=== PATIENT | female | born 2000 | race Caucasian/White ===

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

== ENCOUNTER 2022-04-17 01:27 | Emergency (ER) | payer MEDICAID, SELFPAY ==
[2022-04-17 01:29] VITALS: BP 127/87; PULSE 81; RESP 14; TEMP 36.7; O2SAT 100; BMI 17.9
[2022-04-17 01:45] LABS: Appearance,Urine CLEAR (Clear); Bilirubin,Urine Negative (Negative); Blood, Urine 1+ (Negative); Color,Urine YELLOW (Yellow); Glucose,Urine (UA) Negative (Negative); Ketones,Urine TRACE (Negative); Leukocyte Esterase,Urine Negative (Negative); Microscopic, Urine URINE MICROSCOPIC (MICROSCOPIC); Nitrate,Urine Negative (Negative); PH,Urine 5.5 (5.0-8.5); Protein,Urine TRACE (Negative); Specific Gravity, Urine >= 1.030 (1.005-1.030); Urobilinogen,Urine 0.2 EU/dl (0.2)
[2022-04-17 01:47] LABS: Urine Pregnancy, HCG Qual. Negative (Negative)
[2022-04-17 02:00] VITALS: BP 113/75; PULSE 89; O2SAT 100
--- NOTE | 2022-04-17 02:12 | CT_ITS ---
PROCEDURE INFORMATION: Exam: CT Abdomen And Pelvis With Contrast Exam date and time: 04/17/2022 2:22 AM Age: 21 years old Clinical indication: Abdominal pain TECHNIQUE: Imaging protocol: Computed tomography of the abdomen and pelvis with contrast. Radiation optimization: All CT scans at this facility use at least one of these dose optimization techniques: automated exposure control; mA and/or kV adjustment per patient size (includes targeted exams where dose is matched to clinical indication); or iterative reconstruction. Contrast material: ISOVUE; Contrast volume: 75 ml; Contrast route: IV; COMPARISON: No relevant prior studies available. FINDINGS: Lungs: The lung bases are clear. No pleural effusion. Liver: Unremarkable. No mass. Gallbladder and bile ducts: Unremarkable. No calcified stones. No ductal dilation. Pancreas: Unremarkable. Spleen: Unremarkable. Adrenal glands: Unremarkable. Kidneys and ureters: There is mild right hydronephrosis with delayed nephrogram. There is a 3 mm obstructing stone at the right ureterovesical junction. There is an additional adjacent 2 mm calcification which may also be within the ureter (versus calcified pelvic phlebolith). Stomach and bowel: Unremarkable. No obstruction. No mucosal thickening. Moderate colonic stool. Appendix: The appendix is not identified with certainty on the study. No evidence of appendicitis. Intraperitoneal space: No free air. No significant fluid collection. Retroperitoneal space: No bulky lymphadenopathy. Vasculature: Unremarkable. No abdominal aortic aneurysm. Lymph nodes: Unremarkable. No enlarged lymph nodes. Urinary bladder: Decompressed. Reproductive: Unremarkable as visualized. Bones/joints: Unremarkable. No acute osseous abnormality. Soft tissues: Unremarkable. IMPRESSION: Mild right hydronephrosis due to 3 mm obstructing stone at the right ureterovesical junction. There is an adjacent 2 mm calcification in this vicinity which may represent an additional stone.
--- NOTE | 2022-04-17 02:20 | PC.NURSE ---
Pt gone to RAD
[2022-04-17 02:30] LABS: Basophils # 0.3 K/mm3 (0-0.2); Basophils % 1.9 % (0.1-2.0); Eosinophils % 0.3 % (0.1-12.0); Hematocrit 40.4 % (37.0-47.0); Hemoglobin 13.1 g/dL (12.2-16.2); Lymphocytes % 15.4 % (10-50); Mean Corpuscular HGB Conc 32.5 g/dL (31.8-35.4); Mean Corpuscular Hemoglobin 29.7 pg (27.0-31.2); Mean Corpuscular Volume 91.3 fl (81-99); Mean Platelet Volume 9.2 fl (7.4-10.4); Monocytes # 0.5 K/mm3 (0.1-1.0); Monocytes % 3.8 % (1.7-9.3); Neutrophils # 10.3 K/mm3 (1.8-7.8); Neutrophils % 78.6 % (37.0-80.0); Platelet Count 304 K/mm3 (142-424); Red Blood Count 4.42 M/mm3 (4.20-5.40); Red Cell Distribution Width 12.9 % (11.5-17.5); White Blood Count 13.1 K/mm3 (4.5-13.0)
--- NOTE | 2022-04-17 02:31 | PC.NURSE ---
Pt back from RAD
[2022-04-17 02:40] LABS: Chloride 106 mmol/L (98-107); Potassium 3.6 mmoL/L (3.5-5.1); Sodium 138 mmol/L (136-145)
[2022-04-17 02:43] LABS: Alanine Aminotransferase 18 U/L (12-78); Albumin Level 4.9 g/dl (3.5-5.0); Albumin/Globulin Ratio 1.7 (1.1-1.8); Alkaline Phosphatase 69 U/L (38-126); Amylase 83 U/L (30-110); Anion Gap 11.6 mEq/L (5-15); Aspartate Amino Transferase 30 U/L (14-36); Bilirubin,Total 0.2 mg/dl (0.2-1.3); Blood Urea Nitrogen 14 mg/dl (7-17); Carbon Dioxide 24 mmol/L (22.0-30.0); Creatinine Clearance Estimated 103 mL/min (50-200); Estimated Glomerular Filt Rate 129 ml/min (>60); GFR (African American) 156 ML/MIN (>60); Globulin 2.9 g/dL (1.3-3.2); Total Protein,Serum 7.8 g/dl (6.3-8.2)
[2022-04-17 02:44] LABS: Calcium 9.6 mg/dl (8.4-10.2); Glucose 127 mg/dl (74-100); Lipase 76 U/L (23-300)
--- NOTE | 2022-04-17 02:56 | PC.NURSE ---
Pt resting in bed. No new needs at this time.
[2022-04-17 03:00] VITALS: BP 115/77; PULSE 100; O2SAT 100
[2022-04-17 03:02] LABS: Procalcitonin 0.033 ng/mL (0.0-2.0)
[2022-04-17 03:12] LABS: C-Reactive Protein < 0.3 mg/L (0-4); Erythrocyte Sedimentation Rate 11 mm/hr (0-20)
--- NOTE | 2022-04-17 04:22 | HMH.EDNVD ---
ED Disposition Clinical Impression: Renal colic on right side Disposition: Home, Self-Care Condition on Discharge: Good Instructions: DI for Kidney Stones Additional Instructions: fluids and call pcp and urology this am Prescriptions: Tamsulosin HCl [Flomax 0.4mg capsule] 0.4 mg PO HS #10 cap Transmission Status: Pending to [id number] Referrals: Moose Ruiz MD [Primary Care Provider] - Catrachito Lockhart MD [Staff Physician] - - Critical Care Critical Care Time: No Attestation: On 04/17/22, the high probability of a clinically significant, sudden or life threatening deterioration of the following system(s) required my full and direct attention, intervention and personal management. The time I documented below is in addition to time spent performing reported procedures but includes the following listed in this critical care notation. Medical Decision Making - Medical Records Medical records reviewed: Yes: I reviewed the patient's medical records. - Hong Inquiry Pt receiving controlled substance: No Vital Signs: 04/17/22 01:29 04/17/22 02:00 04/17/22 03:00 Temperature 98.1 F Temperature Source Oral Pulse Rate 89 100 H Pulse Rate [Right Radial] 81 Respiratory Rate 14 Blood Pressure 113/75 115/77 Blood Pressure [Right Arm] 127/87 Blood Pressure Mean 87 86 Blood Pressure Mean [Right Arm] 100 Blood Pressure Source [Right Arm] Automatic Cuff Blood Pressure Position [Right Arm] Sitting 02 Sat by Pulse Oximetry 100 100 100 Oxygen Delivery Method Room Air - Lab Data Lab results reviewed: Yes: I reviewed the patient's lab results. Lab Results 04/17/22 01:40: Urine Color Yellow, Urine Appearance Clear, Urine pH 5.5, Ur Specific [place] >= 1.030, Urine Protein Trace, Urine Glucose (UA) Negative, Urine Ketones Trace, Urine Blood 1+, Urine Nitrate Negative, Urine Bilirubin Negative, Urine Urobilinogen 0.2, Ur Leukocyte Esterase Negative, Urine RBC 5-10, Urine WBC None, Ur Squamous Epith Cells 3-5, Urine Bacteria None 04/17/22 01:40: Urine HCG, Qual Negative 04/17/22 02:00: WBC 13.1 H, RBC 4.42, Hgb 13.1, Hct 40.4, MCV 91.3, MCH 29.7, MCHC 32.5, RDW 12.9, Plt Count 304, MPV 9.2, Neut % (Auto) 78.6, Lymph % (Auto) 15.4, [place] % (Auto) 3.8, Eos % (Auto) 0.3, Baso % (Auto) 1.9, Neut # (Auto) 10.3 H, Lymph # (Auto) 2.0, [place] # (Auto) 0.5, Eos # (Auto) 0.0, Baso # (Auto) 0.3 H 04/17/22 02:00: Sodium 138, Potassium 3.6, Chloride 106, Carbon Dioxide 24, Anion Gap 11.6, BUN 14, Creatinine 0.60, Estimated Creat Clear 103, Estimated GFR 129, Est GFR ( Amer) 156, Glucose 127 H, Calcium 9.6, Total Bilirubin 0.2, AST 30, ALT 18, Alkaline Phosphatase 69, C-Reactive Protein < 0.3, Total Protein 7.8, Albumin 4.9, Globulin 2.9, Albumin/Globulin Ratio 1.7 04/17/22 02:00: ESR 11 04/17/22 02:00: Amylase 83, Procalcitonin 0.033 04/17/22 02:00: Lipase 76 Result diagrams: 04/17/22 02:00 04/17/22 02:00 Orders (Tests/Meds): ED MEDICATIONS Generic Name Dose Route Start Last Admin Trade Name Freq PRN Reason Stop Dose Admin Sodium Chloride 1,000 mls @ 999 mls/hr 04/17/22 02:00 04/17/22 02:05 Sod Chlor 0.9% 1000ml Bag IV 04/17/22 03:00 999 mls/hr .Q1H1M YARELI Administration Sodium Chloride 1,000 mls @ 999 mls/hr 04/17/22 03:15 Sod Chlor 0.9% 1000ml Bag IV 04/17/22 04:15 .Q1H1M YARELI Discontinued Medications Generic Name Dose Route Start Last Admin Trade Name Freq PRN Reason Stop Dose Admin Iopamidol 75 ml 04/17/22 02:34 04/17/22 02:35 Iopamidol-370 (76%);100ml Bottle IV 04/17/22 02:35 75 ml ONCE ONE Administration Ketorolac Tromethamine 30 mg 04/17/22 02:08 04/17/22 02:10 Ketorolac 30mg/Ml Vial IV 04/17/22 02:09 30 mg ONCE ONE Administration Ondansetron HCl 4 mg 04/17/22 01:54 04/17/22 02:06 Ondansetron 4mg/2ml Vial IV 04/17/22 01:55 4 mg ONCE ONE Administration Sodium Chloride 10 ml 04/17/22 02:34 04/17/22 02:35
[2022-04-17 04:42] VITALS: BP 118/74; PULSE 66; RESP 16; TEMP 36.7; O2SAT 100
== END 2022-04-17 04:52 | disposition home or self-care (01) ==
PROVIDERS: Emergency Provider Emergency Medicine; PCP Family Medicine
DX: N23 Unspecified renal colic (principal); R11.2 Nausea with vomiting, unspecified; M54.50 Low back pain, unspecified
CPT/HCPCS: 74177; 80053; 81001; 81025; 82150; 83690; 84145; 85025; 85651; 86140; 96361; 96374; 96375; 99285; J2405; Q9967

== ENCOUNTER 2025-09-04 11:43 | Emergency (ER) | payer OTHER, SELFPAY ==
[2025-09-04] VITALS (8 sets, daily range): BP systolic 103–124; BP diastolic 68–93; PULSE 79–106; RESP 12–19; TEMP 36.9–37.1; O2SAT 98–99; BMI 17.2
--- NOTE | 2025-09-04 11:46 | ECG_ITS ---
APPROVED REPORT Exam: Resting ECG HR:101 bpm ECG Measurements Heart Rate 101 AXES IL 139 P 61 QRSd 102 QRS 81 QT 359 T 9 QTc 417 Conclusion SINUS TACHYCARDIA INCOMPLETE RIGHT BUNDLE BRANCH BLOCK [90+ ms QRS DURATION, TERMINAL R IN V1/V2, 40+ ms S IN I/aVL/V4/V5/V6] NONSPECIFIC T-WAVE ABNORMALITY ABNORMAL RHYTHM ECG UNCONFIRMED REPORT Electronically signed by : Catrachito Virk, 09/04/2025 15:48:28
--- NOTE | 2025-09-04 11:46 | HMH.EDGENADL ---
Discharge Plan Disposition Patient Disposition: Home, Self-Care Condition: Fair Prescriptions Prescriptions: No Action No Known Home Medications Referrals Follow up/Referrals: eMlia Oconnor APRN [Primary Care Provider, Family Practice] - See instructions Activity Restrictions/Add. Instructions Additional Instructions/Restrictions: Stay well-hydrated. Tylenol and Motrin as needed for pain. Return if change in characteristic of pain or shortness of breath or worsening pain despite medication at home. Please follow up with your primary care provider in 2-3 days. Please return to ED if your symptoms worsen, change in location, change in severity, new symptoms develop or if you become concerned for your health. Clinical Impressions Clinical Impression: Chest pain, Hypoglycemia Print Language Print Language: Greek Discharge ED Provider: Catrachito Virk General Adult HPI General Chief complaint: Chest Pain Stated complaint: Chest Pain Time Seen by Provider: 09/04/25 11:46 History of Present Illness HPI narrative: Patient is a 25 female with no significant past medical history presents today for chest pain. She reports a viral illness last week with congestion runny nose vomiting and diarrhea that all resolved. She reports that over the last 2 days, she has developed anterior chest pain that occasionally radiates through to her back. 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 She reports that when she is walking and exerting herself the chest pain gets worse and can resolve with rest. She reports it is positional, but reports that it gets worse with leaning forward, but this is only slightly. Denies any lower extremity edema or history of blood clots. No OCPs or estrogen supplementation. No recent travel. No trauma. No numbness weakness tingling or continued cough congestion runny nose or shortness of breath. Related Data Home Medications ?Medication ?Instructions ?Recorded ?Confirmed No Known Home Medications 09/04/25 09/04/25 Allergies Allergy/AdvReac Type Severity Reaction Status Date / Time No Known Allergies Allergy Verified 09/04/25 11:51 [facility] Disclaimer: The information contained in this section may have been updated after the patient was seen, as this information can be updated by other users. Medical History (Updated 09/04/25 @ 13:57 by Catrachito Virk MD) Palpitation Surgical History History of tonsillectomy Social History Smoking Status: Current some day smoker alcohol intake: never substance use type: denies use current occupational status: unemployed Travel in the last 8 weeks?: None household members: friend(s) housing: house Have you lived/traveled outside [place] in past 30 days?: No Contact w/someone who lives/traveled outside US past 30 days?: No Exposure to someone with infectious disease in past 14 days?: No Do you have a fever (greater than 100.4 F or 38 C)?: No Have you tested positive for COVID-19?: No Exposed to someone with COVID-19 in past 14 days?: No Do you have a sore throat?: No Do you have a cough?: No Do you have any weakness?: No Do you have any diarrhea?: No Are you experiencing any unusual bleeding?: No Do you have any muscle aches/pain?: No Do you have any abdominal pain?: No Are you experiencing loss of taste or smell?: No Other Medical History Have you received the Flu Vaccine for this season: Yes Have you received the Pneumonia Vaccine: No ROS Obtained: Yes All systems reviewed & no additional complaints except as documented Physical Exam General General appearance: alert and in no apparent distress Head Head exam: atraumatic and normocephalic Eye Eye exam: Present PERRL and EOMI ENT ENT exam: Present normal oropharynx Neck Neck exam: Present full ROM and trachea midline Chest Chest inspection: Present symmetric chest wall rise Respiratory Respiratory exam: Present normal lung sounds bilaterally; Absent stridor Cardiovascular Cardiovascular exam: Present regular rate and normal rhythm Abdominal Exam Abdominal exam: Present soft; Absent distention or tenderness Extremities Exam Extremities exam: Present full ROM Neurological Exam Neurological exam: Present alert and oriented X3 Psychiatric Psychiatric exam: Present normal mood Skin Skin exam: Present warm and dry Medical Decision Making Medical Records Screening: Per USPSTF and CDC recommendations, given the prevalence of disease in our region, it is our hospital?s policy to screen for HIV and viral Hepatitis for all patients aged 18 and over and those with ongoing risk factors. [place] Inquiry Pt receiving controlled substance: No Vital Signs: 09/04/25 11:44 09/04/25 11:50 09/04/25 12:02 Temperature 98.7 F Temperature Source Oral Pulse Rate 106 H 92 H Pulse Rate [Brachial] 106 H Respiratory Rate 15 12 Blood Pressure 120/86 Blood Pressure [Right Arm] 124/93 H Blood Pressure Mean [Right Arm] 103 Blood Pressure Source [Right Arm] Automatic Cuff Blood Pressure Position [Right Arm] Supine 02 Sat by Pulse Oximetry 99 98 Oxygen Delivery Method Room Air Room Air 09/04/25 12:30 Temperature Temperature Source Pulse Rate Pulse Rate [Brachial] Respiratory Rate 19 Blood Pressure 117/88 Blood Pressure [Right Arm] Blood Pressure Mean [Right Arm] Blood Pressure Source [Right Arm] Blood Pressure Position [Right Arm] 02 Sat by Pulse Oximetry 98 Oxygen Delivery Method Room Air Lab Data Lab Results 09/04/25 11:54: WBC 5.3, RBC 4.25, Hgb 12.4, Hct 37.2, MCV 87.5, MCH 29.2, MCHC 33.3, RDW 12.5, Plt Count 224, MPV 11.2 H, Neut % (Auto) 45.0, Lymph % (Auto) 41.9, [place] % (Auto) 8.9, Eos % (Auto) 2.7, Baso % (Auto) 1.3, Neut # (Auto) 2.4, Lymph # (Auto) 2.2, [place] # (Auto) 0.5, Eos # (Auto) 0.1, Baso # (Auto) 0.1, Sodium 133 L, Potassium 5.0, Chloride 103, Carbon Dioxide 23, Anion Gap 12.0, BUN 15, Creatinine 0.60, Estimated Creat Clear 92, Estimated GFR 124, Est GFR ( Amer) 150, Glucose 69 L, Calcium 8.5, Total Bilirubin 0.9, AST 36, ALT 14, Alkaline Phosphatase 36 L, Troponin I 0.01, Total Protein 7.2, Albumin 4.3, Globulin 2.9, Albumin/Globulin Ratio 1.5, Serum HCG, Qual Negative, Urine HCG, Qual Negative, HCV Ab PEPE w/Rflx PCR Qn Negative, HIV Ag/Ab Combo Qual Negative 09/04/25 12:30: D-Dimer 0.28 09/04/25 11:54 09/04/25 11:54 Orders (Tests/Meds): ED MEDICATIONS Discontinued Medications Generic Name Dose Route Start Last Admin Trade Name Freq PRN Reason Stop Dose Admin Acetaminophen 1,000 mg 09/04/25 12:12 09/04/25 12:18 Acetaminophen 500mg Tab PO 09/04/25 12:13 1,000 mg ONCE ONE Administration Sodium Chloride 1,000 mls @ 999 mls/hr 09/04/25 12:12 09/04/25 12:18 Sod Chlor 0.9% 1000ml Bag IV 09/04/25 13:12 999 mls/hr .Q1H1M ONE Administration Ibuprofen 600 mg 09/04/25 12:12 09/04/25 12:18 Ibuprofen 600 Mg Tablet PO 09/04/25 12:13 600 mg ONCE ONE Administration ORDERS Category Date Time Status CXR --portable [XR chest portable] Stat Exams 09/04/25 12:02 Taken CBC w/Auto Diff [Complete Blood Count Auto Diff] Stat Lab 09/04/25 11:54 Completed CMP [Comprehensive Metabolic Panel] Stat Lab 09/04/25 11:54 Completed D-Dimer Stat Lab 09/04/25 12:30 Completed HCG Qualitative, Serum Stat Lab 09/04/25 11:54 Completed HIV Combo Routine Lab 09/04/25 11:54 Completed Hepatitis C Ab Qual. W/ RFX Routine Lab 09/04/25 11:54 Completed Trop I [Troponin I] Stat Lab 09/04/25 11:54 Completed Troponin I Q3H Lab 09/04/25 15:15 Ordered Troponin I Q3H Lab 09/04/25 18:15 Ordered Urine , HCG Qual. Stat Lab 09/04/25 11:54 Completed ECG Data Tracing #1: I reviewed this ECG and interpreted as documented below: Sinus tachycardia with no obvious acute ischemic ST change Medical Decision Narrative: Patient is a 25-year-old female presenting today for chest pain. No medical history. On arrival, she is afebrile, mildly tachycardic to 102, otherwise stable. On exam warm and well-perfused for pulses and brisk capillary refill. Heart is regular rate and rhythm when I am auscultating, lung sounds are clear to auscultation bilaterally. No reproducible tenderness on the chest wall no paradoxical chest wall movement, no rashes or skin color changes. No lower extremity edema. Pulses are full in all extremities. No abdominal tenderness. No back tenderness midline. Possible costochondritis, though she is not tender. Could also be pleurisy given her recent viral illness, pericarditis felt to be less likely given that her pain is getting worse when she leans forward, and no ST elevation on her EKG, but will screen for ACS with troponins and low risk PE with a D-dimer. Chest x-ray to rule out pneumonia or pneumothorax. Chest x-ray independently interpreted by myself demonstrate no acute cardiopulmonary abnormality and confirmed by radiology final read. D-dimer negative, considered CT PE, but deferred given after mentioned. ACS less likely given negative troponin and reassuring EKG. On reassessment, patient reports improvement in symptoms. She is tolerating oral intake and ambulatory. Her blood sugar and fruit improved with p.o. Likely pleurisy versus muscle strain. NSAIDs, multimodal pain control. Strict return precautions discussed all questions answered amenable to plan and discharge Critical Care Critical Care Time Critical Care Time: No
--- NOTE | 2025-09-04 12:02 | XR_ITS ---
FINAL REPORT TECHNIQUE: Single view chest CLINICAL HISTORY: chest pain FINDINGS: A single view of the chest was obtained. The heart and mediastinum are within normal limits. The lungs are clear. There is no pneumothorax. IMPRESSION: No acute cardiopulmonary process. Reviewed, Interpreted and Dictated by Leatha Dimas MD Transcribed by Minerva Frausto Authenticated and [facility]
[2025-09-04 12:14] LABS: Urine Pregnancy, HCG Qual. Negative (Negative)
[2025-09-04] MEDS: 0.9 % SODIUM CHLORIDE 1000ML 1,000 ML 999 ML IV (12:18)
[2025-09-04] MEDS: ACETAMINOPHEN 500MG TAB 1000 MG PO (12:18)
[2025-09-04] MEDS: IBUPROFEN 600 MG TABLET PO (12:18)
[2025-09-04 12:19] LABS: Hematocrit 37.2 % (37.0-47.0); Hemoglobin 12.4 g/dL (12.2-16.2); Immature Granulocytes % 0.2 %; Mean Corpuscular HGB Conc 33.3 g/dL (31.8-35.4); Mean Corpuscular Hemoglobin 29.2 pg (27.0-31.2); Mean Corpuscular Volume 87.5 fl (81-99); Nucleated Red Blood Cells % 0 %; Platelet Count 224 K/mm3 (142-424); Red Blood Count 4.25 M/mm3 (4.20-5.40); Red Cell Distribution Width-SD 40.3 fL; White Blood Count 5.3 K/mm3 (4.8-10.8)
[2025-09-04 12:25] LABS: Chloride 103 mmol/L (98-107); HCG Qualitative, Serum Negative (Negative)
[2025-09-04 12:26] LABS: Albumin Level 4.3 g/dl (3.5-5.0); Potassium 5.0 mmoL/L (3.5-5.1); Sodium 133 mmol/L (136-145)
[2025-09-04 12:28] LABS: Alanine Aminotransferase 14 U/L (12-78); Anion Gap 12.0 mEq/L (5-15); Aspartate Amino Transferase 36 U/L (14-36); Blood Urea Nitrogen 15 mg/dl (7-17); Carbon Dioxide 23 mmol/L (22.0-30.0); Creatinine Clearance Estimated 92 mL/min (50-200); Creatinine,Serum 0.60 mg/dl (0.52-1.04); Estimated Glomerular Filt Rate 124 ml/min (>60); GFR (African American) 150 ML/MIN (>60)
[2025-09-04 12:29] LABS: Albumin/Globulin Ratio 1.5 (1.1-1.8); Alkaline Phosphatase 36 U/L (38-126); Bilirubin,Total 0.9 mg/dl (0.2-1.3); Calcium 8.5 mg/dl (8.4-10.2); Globulin 2.9 g/dL (1.3-3.2); Glucose 69 mg/dl (74-100); Total Protein,Serum 7.2 g/dl (6.3-8.2)
[2025-09-04 12:42] LABS: Troponin I 0.01 ng/ml (0.00-0.034)
[2025-09-04 12:51] LABS: D-Dimer 0.28 ug/mL (0.0-0.5)
--- NOTE | 2025-09-04 13:12 | PC.NURSE ---
[place] juice given to pt w/ 's approval. Will recheck FSBS @ 2397
[2025-09-04 13:19] LABS: Hepatitis C Ab Qual. W/ RFX NEGATIVE (Negative)
--- NOTE | 2025-09-04 13:38 | PC.NURSE ---
Patients FSBS is 89.
== END 2025-09-04 14:10 | disposition home or self-care (01) ==
PROVIDERS: Emergency Provider Emergency Medicine; PCP Nurse Practitioner Family
DX: R07.9 Chest pain, unspecified (principal); R00.0 Tachycardia, unspecified; E16.2 Hypoglycemia, unspecified; E87.1 Hypo-osmolality and hyponatremia; F17.210 Nicotine dependence, cigarettes, uncomplicated
CPT/HCPCS: 71045; 80053; 81025; 84484; 84703; 85025; 85378; 86803; 87389; 93005; 96360; 99285; J7030